=== PATIENT | female | born 1945 | race Caucasian/White ===

== ENCOUNTER 2020-08-02 12:46 | Outpatient (RCR) | payer MEDICARE, BC ==
[2015-10-30 17:39] VITALS: BP 133/80
[~2020-08-02 12:46] MED LIST: COUMADIN 77.5 MG/TAB PO; COZAAR 50MG50 MG/TAB PO; GOOD SENSE ASPI81 M1 PO; HCTZ 25MG25 MG PO; LOSARTAN POTASS50 MG PO; SIMVASTATIN20 M1 PO; SINGULAIR; SOTALOL HYDROCH80 MG PO
== END 2020-09-08 17:00 | disposition home or self-care (01) ==
LOC: PT 12:46
DX: M25.562 Pain in left knee (principal); G89.29 Other chronic pain

== ENCOUNTER → 2023-10-04 | Outpatient (CLI) | payer MEDICARE, BC | LOC: RAD 11:24 | DX: M17.0 Bilateral primary osteoarthritis of knee (principal) ==

== ENCOUNTER 2023-10-12 08:00 | Outpatient (RCR) | payer MEDICARE, BC | END 2023-11-09 | LOC: PT | DX: M25.561 Pain in right knee (principal); M25.562 Pain in left knee ==